=== PATIENT | male | born 1950 | race Caucasian/White ===

== ENCOUNTER → 2016-04-28 | Outpatient (CLI) | payer OTHER ==
[~2016-04-28] MED LIST: IOPAMIDOL (ISOVUE-300) 100 ML BTL IV ONE
[2016-04-28 09:10] LABS: CREATININE 0.9 mg/dL (0.7-1.3); GLOMERULAR FILTRATION RATE > 60
== END ==
LOC: FIMAGING 08:21
PROVIDERS: ATTEND Internal Medicine Cardiovascular Disease
DX: I25.10 Atherosclerotic heart disease of native coronary artery without angina pectoris (principal)
CPT/HCPCS: 75574; Q9967

== ENCOUNTER → 2016-09-24 | Outpatient (CLI) | payer OTHER | LOC: FIMAGING 09:05 | PROVIDERS: ATTEND Internal Medicine Pulmonary Disease | DX: R07.89 Other chest pain (principal); K21.9 Gastro-esophageal reflux disease without esophagitis; M43.12 Spondylolisthesis, cervical region ==

== ENCOUNTER 2017-04-20 06:57 | Observation (INO) | payer OTHER ==
[2017-04-20] MEDS ORDERED: NS 1,000 ML IV ONE (06:59)
--- NOTE | 2017-04-20 07:18 | CPEKG ---
Heart Rate: 73 RR Interval: 822 P-R Interval: 188 QRSD Interval: 112 QT Interval: 388 QTC Interval: 428 P [place]: 43 QRS [place]: 66 T Wave [place]: 16 EKG Severity - ABNORMAL ECG - EKG Impression: SINUS RHYTHM EKG Impression: NONSPECIFIC INTRAVENTRICULAR CONDUCTION DELAY Electronically Signed By: Milad Garcia 20-Apr-2017 08:01:55
[2017-04-20 07:30] LABS: PLATELET COUNT 146 10^3/uL (150-400)
[2017-04-20 07:39] LABS: INR 1.04 (0.83-1.16); PROTIME(PATIENT) 13.8 SEC (12.0-15.0)
[2017-04-20] MEDS ORDERED: LIDOCAINE 1% 300 MG/30 ML SDV ONE (07:53)
[2017-04-20] MEDS ORDERED: HEPARIN 10,000 UNIT/10 ML MDV (1,000 UNIT/ML) ONE (07:53)
[2017-04-20] MEDS ORDERED: ISOPROTERENOL HCL/D5W 0.2 MG/50 ML BAG IV ONE (07:54)
--- NOTE | 2017-04-20 08:36 | PDANEPAE ---
ANE History of Present Illness 66 yo male with paroxysmal SVT. ANE Past Medical History - Cardiovascular History Hx Hypertension: No Hx Arrhythmias: Yes Hx Chest Pain: No Hx Coronary Artery / Peripheral Vascular Disease: No Hx CHF / Valvular Disease: No Hx Palpitations: Yes - Pulmonary History Hx COPD: No Hx Asthma/Reactive Airway Disease: No Hx Recent Upper Respiratory Infection: No Hx Oxygen in Use at Home: No Hx Sleep Apnea: No Pulmonary History Comment: possible GREGG per pt. Will pursue sleep study after SVT ablation. - Neurologic History Hx Cerebrovascular Accident: No Hx Seizures: No Hx Dementia: No - Endocrine History Hx Diabetes: No Hypothyroid: No Obesity: mild - Renal History Renal History Comment: BPH - Liver History Hx Hepatic Disorders: No - Neurological & Psychiatric Hx Hx Neurological and Psychiatric Disorders: No - Cancer History Hx Cancer: No - GI History Hx Gastrointestinal Disorders: No - Surgical History Prior Surgeries: tonsillectomy. colonoscopy ANE Review of Systems Review of systems is: negative Review of Systems: - Systems Constitutional: Reports: no symptoms Cardiac: Reports: irregular heart rate (Pt feels fatigues with SVT, otherwise no symptoms) Respiratory: Reports: no symptoms ANE Patient History - Allergies Allergies/Adverse Reactions: tamsulosin [From Flomax] Adverse Reaction (Verified 04/20/17 07:25) - Home Medications Home Medications: Aspirin [Aspirin 81mg (*)] 81 mg PO DAILY 04/13/17 [Last Taken 04/13/17] Doxazosin Mesylate [Cardura 1 MG (*)] 1 mg PO DAILY 04/13/17 [Last Taken Unknown ] Finasteride [Proscar 5 MG (*)] 5 mg PO DAILY 04/13/17 [Last Taken 04/19/17] - NPO status NPO Status: no food or drink >8 hours - Anes Hx Anes Hx: no prior problems - Smoking Hx Smoking Status: Former smoker Marijuana use: No - Alcohol Use Alcohol Use: Occasionally - Family Anes Hx Family Anes Hx: neg - N/A ANE Labs/Vital Signs - Labs Result Diagrams: 04/20/17 07:15 04/20/17 07:15 - Vital Signs Vital Signs: reviewed preoperatively; see RN documention for details Height: 180.34 cm Weight: 99.79 kg ANE Physical Exam - Airway Neck exam: FROM Mallampati Score: Class 2 Mouth exam: normal dental/mouth exam - Pulmonary Pulmonary: clear to auscultation - Cardiovascular Cardiovascular: regular rate and rhythym - ASA Status ASA Status: II ANE Anesthesia Plan Anesthesia Plan: general endotracheal anesthesia
--- NOTE | 2017-04-20 08:47 | PDGENHP ---
History & Physical Chief Complaint: svt History of Present Illness: svt Relevant Physical Exam: s1s2 rrr cta ao3 Cardiorespiratory Assessment: svt for eps and ablation
[2017-04-20] MEDS ORDERED: fentaNYL 100 MCG/2 ML INJ ONE (08:49)
[2017-04-20] MEDS ORDERED: PROPOFOL/EMULSION 500 MG/50 ML BOTTLE IV ONE ×2 (08:49)
[2017-04-20] MEDS ORDERED: DEXAMETHASONE 4 MG/ML VIAL ONE (08:49)
[2017-04-20] MEDS ORDERED: PHENYLEPHRINE HCL 100 MCG/ML SYR ONE (09:18)
[2017-04-20] MEDS ORDERED: ONDANSETRON 4 MG/2 ML VIAL ONE (09:58)
[2017-04-20] MEDS ORDERED: PROPOFOL 200 MG/20 ML VIAL ONE (10:28)
[2017-04-20] MEDS ORDERED: SUGAMMADEX SODIUM 200 MG/2 ML VIAL IVP ONE (10:34)
[2017-04-20] MEDS ORDERED: NALOXONE HCL 0.4 MG/ML INJ IVP PRN (10:54)
[2017-04-20] MEDS ORDERED: ONDANSETRON 4 MG/2 ML VIAL IVP PRN (10:54)
[2017-04-20] MEDS ORDERED: ALBUTEROL 3 ML DEYVIAL IH PRN (10:54)
--- NOTE | 2017-04-20 10:54 | POSTANESTH ---
Post Anesthetic Evaluation Cardiovascular Status: Normal, Stable Respiratory Status: Normal, Stable Level of Consciousness/Mental Status: Can Participate in Eval, Moderately Sleepy Pain Control: Adequate, Prn Tx Ordered Nausea/Vomiting Control: Adequate, Prn Tx Ordered Complications Possibly Related to Anesthesia: None Noted
--- NOTE | 2017-04-20 10:57 | EPPROC ---
Electrophysiology Procedure Note: ELECTROPHYSIOLOGIC STUDY AND CATHETER MEDIATED ABLATION OF SLOW/FAST AV TASHI REENTRY TACHYCARDIA PROCEDURES PERFORMED: 02184-99 EP evaluation with RA/RV/LA pace/record, with arrhythmia induction 28565-84 EP evaluation with RA/RV pace record, insert/reposition catheter, with arrhythmia induction 03226 Intracardiac catheter ablation, SVT arrhythmogenic focus 40937 3D mapping Fluoroscopy INDICATION: Recurrent SVT PROCEDURE: Catheters & Anesthesia: The patient arrived in the Electrophysiology Laboratory in the fasting state. The right clavicular region, right groin, and left groin area were prepped and draped in the usual sterile manner. Anesthesiologist Dr. Manuela Gomez administered general anesthesia. Appropriate non-invasive blood pressure, pulse oximetry and end-tidal CO2 monitoring was established. All catheters were placed percutaneously using the modified Seldinger technique , and advanced into position under fluoroscopic guidance. One #6 Greek hexapolar non-deflectable electrode catheter was inserted into the right atrial appendage via the left femoral vein (2mm spacing; except the proximal ring which was 25cm from the tip used for unipolar recordings). One #7 Greek deflectable octapolar electrode catheter was advanced to the His-bundle position via the left femoral vein (2mm spacing). One #7 Greek deflectable quadrapolar catheter was advanced to the anteroseptal right ventricle via the right femoral vein. One #7 Greek deflectable catheter with 10 pairs of electrodes was placed via the right femoral vein into the coronary sinus. Heparin was given to keep ACT > 2-- s. Programmed stimulation was performed from the right atrium, right ventricle and coronary sinus (left atrium). Parahisian pacing demonstrated constant H-A interval with changing V-A intervals and stimulus-A intervals during capture and loss of capture of proximal RBB proving retrograde conduction over AV node. 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 Ventricular extrastimuli delivered during tachycardia without altering antegrade His bundle activation did not advance next atrial potential, indicating that the tachycardia was not utilizing an accessory pathway for retrograde conduction. VA interval was 25 ms. Post entrainment of the tachycardia from the ventricle, there was VAHV response. Mapping of the right atrium and coronary sinus during AVNRT identified earliest atrial activation above the tendon of Donte at a level slightly posterior to the level of the His bundle, consistent with retrograde conduction over the fast AV tashi pathway. A #8 Greek deflectable quadrapolar electrode catheter (2mm-5mm-2mm spacing) with 4 mm tip electrode and sensor for the 3D mapping Carto system was advanced to the right atrium. 3 D mapping of the inter-atrial septum and coronary sinus was performed and location of the AV node was marked. A SL2 sheath was used. RF applications were delivered to the region between the tricuspid annulus and the coronary sinus ostium, at the level of the upper edge of the coronary sinus ostium. Radiofrequency applications were also delivered along the roof of the proximal coronary sinus. Junctional rhythm occurred during all of the RF applications. Programmed stimulation was continued post ablation at baseline and during graded doses of isoproterenol upto 4mcg/min. Sustained AVNRT was not inducible. There were single echo beats. The catheters were removed. Sheaths were removed in the EP lab after applying subcutaneous purse string suture. The patient was transferred to the cardiovascular holding area in stable condition. There were no apparent complications. Results: A. Spontaneous Intervals: Pre ablation SCL 790 ms AH 80 ms HV 45 ms Post ablation SCL 730 ms AH 75 ms HV 45 ms B. Antegrade AV tashi function (decremental pacing) Pre ablation FPERP 360 ms WBB CL 350 ms Post ablation FPERP 380 ms WBB CL 370 ms C. Retrograde AV tashi function (decremental pacing) Pre ablation V pacing at 450 ms reproducibly induced AVNRT D. Arrhythmias: Sustained slow/fast AVNRT Cycle length 440 ms, AH interval 400 ms, MACARIO interval 40 ms VA interval 35 ms CONCLUSIONS 1. 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 ( Slow/fast AVNRT). 2. Successful ablation of the slow AV tashi pathway with elimination of 1:1 antegrade conduction over the slow AV tashi pathway, all retrograde conduction over the slow AV tashi pathway and the inducibility of AVNRT. 3. No complications. Patient Problems: Problems Problem Status Onset Supraventricular tachycardia Acute
--- NOTE | 2017-04-20 11:08 | CPEKG ---
Heart Rate: 76 RR Interval: 789 P-R Interval: 200 QRSD Interval: 108 QT Interval: 380 QTC Interval: 428 P [place]: 58 QRS [place]: 68 T Wave [place]: 30 EKG Severity - OTHERWISE NORMAL ECG - EKG Impression: SINUS RHYTHM EKG Impression: VENTRICULAR PREMATURE COMPLEX EKG Impression: LOW VOLTAGE IN FRONTAL LEADS Electronically Signed By: Quinn Dow 20-Apr-2017 16:39:37
[2017-04-20] MEDS ORDERED: FINASTERIDE 5 MG TAB PO SCH (21:00)
[2017-04-20] MEDS ORDERED: DOXAZOSIN MESYLATE 1 MG TAB PO SCH (21:00)
[2017-04-20] MEDS ORDERED: ASPIRIN 81 MG CHEWABLE TAB PO SCH (21:00)
[2017-04-21 03:34] VITALS: RESP 16
[2017-04-21 04:30] LABS: PLATELET COUNT 148 10^3/uL (150-400)
[2017-04-21 04:37] LABS: INR 1.18 (0.83-1.16); PROTIME(PATIENT) 15.2 SEC (12.0-15.0)
[2017-04-21 04:39] LABS: CREATINE KINASE 47 IU/L (0-224)
[2017-04-21 08:18] VITALS: BP 122/71; PULSE 75; TEMP 98.3; O2SAT 92
--- NOTE | 2017-04-21 09:08 | CPEKG ---
Heart Rate: 78 RR Interval: 769 P-R Interval: 188 QRSD Interval: 116 QT Interval: 368 QTC Interval: 420 P [place]: 54 QRS [place]: 48 T Wave [place]: -13 EKG Severity - ABNORMAL ECG - EKG Impression: SINUS RHYTHM EKG Impression: NONSPECIFIC INTRAVENTRICULAR CONDUCTION DELAY Electronically Signed By: Quinn Dow 21-Apr-2017 17:40:16
--- NOTE | 2017-04-21 09:47 | ECHO ---
[email or web address] [address] [address] Main: [phone] Fax: Transthoracic Echocardiogram Name: ANALI WOODS MR#: [id number] Study Date: 04/21/2017 Study Time: 08:26 AM Date of : 1950 Age: 66 year(s) Height: 180.3 cm (71 in.) Weight: 99.79 kg (220 lb.) BSA: 2.2 m2 Gender: Male Examination: Echo Indication: Post Ablation Image Quality: Contrast: Requested by: Milad Garcia BP: 122 mmHg/71 mmHg Heart Rate: Rhythm: Normal sinus rhythm Indication: Post Ablation Procedure Staff Licensed Social Worker: Gavino Mar RDCS Reading Physician: Jayy Solis MD Requesting Provider: Conclusions: Normal size left ventricle. No LV hypertrophy. Normal global systolic LV function. EF is 70 %. No regional wall motion abnormality. Normal size right ventricle. The mitral valve is normal in appearance and function. Trivial mitral valve regurgitation. The aortic valve is tri-leaflet and functions normally. There is no aortic valve regurgitation. The tricuspid valve is normal in appearance and function. The pulmonic valve is normal in appearance and function. Measurements: Chambers Valvular Assessment AV/MV Valvular Assessment TV/PV Normal Normal Normal Name Value Range Name Value Range Name Value Range Ao Margarita (MM): 4.7 cm (2.2 cm-3.7 AV Vmax: 1.36 m/s (1 m/s-1.7 TR Vmax: 2.47 mm/s ( - ) cm) m/s) TR PGmax: 24 mmHg ( - ) IVSd (2D): 1.1 cm (0.6 cm-1.1 AV maxP mmHg ( - ) syst. PAP: 29 mmHg ( - ) cm) LVOT Vmax: 1.01 m/s (0.7 m/s-1.1 PV Vmax: 1.32 m/s (0.6 m/s-0.9 LVDd (2D): 4.9 cm (4.2 cm-5.9 m/s) m/s) cm) MV E Vmax: 0.63 m/s ( - ) PV PGmax: 7 mmHg ( - ) LVDs (2D): 3.0 cm (2.1 cm-4 MV A Vmax: 0.73 m/s ( - ) cm) MV E/A: 0.86 ( - ) LVPWd (2D): 1.2 cm (0.6 cm-1 cm) LVEF (2D): 70 (>=54 %) Continued Measurements: Patient: ANALI WOODS Study Date: 04/21/2017 Page 1 of 2 08:26 AM Chambers Valvular Assessment AV/MV Valvular Assessment TV/PV Name Value Name Value Name Value LADs Lon.1 cm MV E' Septal: 0.06 m/s CVP (est.): 5 mmHg LA Area: 19.6 cm2 MV E/E' Septal: 10.00 MV E/E' Lateral: 9.20 Findings: Left Ventricle: Normal size left ventricle. No LV hypertrophy. Normal global systolic LV function. EF is 70 %. No regional wall motion abnormality. Right Ventricle: Normal size right ventricle. Left Atrium: The left atrium is mildly dilated. Right Atrium: The right atrium is normal in size. Mitral Valve: The mitral valve is normal in appearance and function. Trivial mitral valve regurgitation. Aortic Valve: The aortic valve is tri-leaflet and functions normally. There is no aortic valve regurgitation. Tricuspid Valve: The tricuspid valve is normal in appearance and function. Pulmonic Valve: The pulmonic valve is normal in appearance and function. Aorta: The aorta is normal. Pericardium: No pericardial effusion. (No Signature Object) Patient: ANALI WOODS Study Date: 04/21/2017 Page 2 of 2 08:26 AM [id number]
--- NOTE | 2017-04-21 10:01 | ASMTCASEMG ---
Living Arrangements What is your living Answers: With Spouse arrangement? Who do you live with? Type Of Residence What kind of residence do Answers: House you live in? Discharge Plan Comments Coordination Status Comments Notes: Pt is a 66 y/o man admitted for an SP ablation SVT. Pt will most likely d/c independent when medically stable. No therapies ordered at this time. CM available for changes. Plan: Independent Date Signed: 04/21/2017 10:00 AM Electronically Signed By:MONSERRAT Ortiz
--- NOTE | 2017-04-21 12:23 | GDS ---
[f rep st] DISCHARGE SUMMARY ADMISSION DIAGNOSIS: Paroxysmal supraventricular tachycardia. DISCHARGE DIAGNOSIS: Paroxysmal supraventricular tachycardia, status post atrioventricular selena ree ntrant tachycardia ablation. PROCEDURES PERFORMED DURING HOSPITALIZATION: 1. Electrocardiogram. 2. Electrophysiology study. 3. AVNRT ablation. 4. Echocardiogram. BRIEF HISTORY: Please see H and P: Briefly, the patient is a 66-year-old male who has history of chacon praventricular tachycardia, he has been reporting episodes every week, that can last several hours. He has feelings of shortness of breath and fatigue during and afterward. He has had no syncopal even t. He was seen by Dr. Garcia, in evaluation, and felt to be appropriate candidate to undergo electrophy siology study, and potentially ablation, if necessary. HOSPITAL COURSE: Patient was admitted through CVC, prepped for procedure, and taken to the electroph ysiology lab. There, Dr. Garcia performed EP study, in which identifying an AV selena reentry tachycardi a using a slow AV selena pathway for antegrade conduction. At that time, an ablation was performed, p ost ablation no further arrhythmias was able to be stimulated. No complications. Patient was taken ultimately to the CVC, and then to the PCU for overnight observation. There, he reports he did have a quick second of mild chest pressure last evening, that was less than a few seconds, and dissipated. He has been up and walking the unit without difficulties. By continuous cardiac monitoring, he has been maintaining sinus rhythm with no arrhythmias or pauses noted throughout the evening. PHYSICAL EXAMINATION: Done today: GENERAL APPEARANCE: Medium-built, mildly obese, male. He is alert and oriented to person, place, time, situation. Appears to be under no acute distress. VITAL SIGNS: Current vital signs are blood pressure 122/71, heart rate of 75 sinus rhythm on the mo nitor, respirations 16, saturating 92% on room air. Temperature of 36.8 degrees Celsius. HEENT: He ad is normocephalic. Lips and tongue are pink and moist with no signs of cyanosis. Conjunctivae pin k. NECK: Trachea is midline, +2 carotid pulses bilateral. No auscultated bruits, no jugular vein d istention. RESPIRATORY: Lungs clear to auscultation, no rhonchi, rales or wheezes. No accessory mu scle use, no intercostal muscle retraction noted. CARDIAC: Regular rate, regular rhythm, S1, S2, no S3, S4 gallops, rubs, or murmurs noted. ABDOMEN: Soft, nontender, bowel sounds x4 quadrants, no or ganomegaly, no palpable masses. SKIN: [place], warm, dry, no cyanosis, no clubbing, no peripheral lisbeth a. VASCULAR: +2 carotids bilateral, +2 radials bilateral, +2 dorsal pedal and posterior tibial puls es bilateral. GENITOURINARY: Groin site, catheter insertion site, with no redness, swelling, draina ge, ecchymosis, or hematoma noted. No auscultated bruit noted over either site. LABORATORY STUDIES: Drawn today, show WBC of 7.74, hemoglobin of 15.3, hematocrit of 44.7, platelet count of 148. INR of 1.18. Sodium 140, potassium 3.9, chloride 107, CO2 was 25, BUN 22, creatinine 0.8, glucose 92, calcium 8.7. CK 47, CK-MB 0.95. Troponin was 0.119. Note that expected to have mi ldly elevated cardiac enzymes status post ablation. STUDIES: Electrophysiology study and ablation as mentioned above. This morning's electrocardiogram shows sinus rhythm, normal axis, nonspecific interventricular conduc tion delay. No acute ST or T-wave abnormalities suggesting of ischemia. Morning echocardiogram showed normal LV size, no LVH, normal LV systolic function, with EF of 70%, wi th no wall motion abnormalities, RV normal size and function, trivial MR. No pericardial effusion. DISCHARGE DISPOSITION: Patient will be discharged home in stable condition. He is under activity re strictions of no lifting more than 10 pounds for the next week and no strenuous activities for the ne xt 2 weeks. DISCHARGE MEDICATIONS: Please see discharge med reconciliation sheet. DISCHARGE INSTRUCTIONS: Post SVT ablation discharge instructions went over with the patient and his , including monitoring for signs of infection, bleeding precautions, activity restrictions, and m edication compliance. Due to the patient's recent ablation, he is at a high risk for a thrombotic ev ent. He has been started on aspirin therapy at 81 mg p.o. daily, which he will take for the next 6 w eeks. He has also been advised for every 35-45 minutes of sitting while awake, he is to get up and w alk 5-10 minutes. At the time of discharge, patient and his had no questions or concerns. They have been told that if any problems or concerns post hospitalization, they are to call our office or return to the hospital. The patient has a followup appointment set with Dr. Garcia, in 1 month's time. Total time spent on discharge: Greater than 30 minutes. /[id number]/MODL
== END 2017-04-21 10:47 | disposition home or self-care (01) ==
LOC: FCATH 06:57 → F2W 10:57
PROVIDERS: ADMIT Internal Medicine Cardiovascular Disease; ATTEND Internal Medicine Cardiovascular Disease
DX: I47.1 Supraventricular tachycardia (principal); N40.1 Benign prostatic hyperplasia with lower urinary tract symptoms; I25.10 Atherosclerotic heart disease of native coronary artery without angina pectoris; E78.5 Hyperlipidemia, unspecified; E66.9 Obesity, unspecified; Z68.30 Body mass index [BMI] 30.0-30.9, adult; Z86.010 Personal history of colon polyps; Z79.83 Long term (current) use of bisphosphonates
CPT/HCPCS: 93005; 93306; 93613; 93621; 93623; 93653; C1730; C1731; C1732; C1893; G0378; J1100; J1644; J2370; J2405; J2704; J3010